=== PATIENT | male | born 1995 | race Caucasian/White ===

== ENCOUNTER 2022-10-01 05:01 | Emergency (ER) | payer MEDICAID, SELFPAY ==
[2022-10-01 05:16] VITALS: BP 140/81; PULSE 95; RESP 18; TEMP 36.8; O2SAT 94; BMI 33.7
[2022-10-01 05:55] VITALS: BP 137/83; PULSE 91; RESP 18; TEMP 37.2; O2SAT 95
[2022-10-01] MEDS: Diphth,Pertus(ACell),Tet Adult 0.5 ML SYRINGE IM (06:04)
[2022-10-01] MEDS: Ketorolac Tromethamine 60 MG/2 ML VIAL IM (06:05)
[2022-10-01] MEDS: Bacitracin Oint 0.9 GM PACKET 10 APPL TOPICAL (06:05)
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
[2022-10-01 06:44] VITALS: RESP 16
[2022-10-01] MEDS: Morphine Sulfate 4 MG/ML CARTRIDGE IM (06:44)
[2022-10-01 07:00] VITALS: BP 127/70; PULSE 85; RESP 16; O2SAT 97
== END 2022-10-01 07:09 | disposition home or self-care (01) ==
PROVIDERS: Emergency Provider Emergency Medicine
DX: T22.211A Burn of second degree of right forearm, initial encounter (principal); X10.2XXA Contact with fats and cooking oils, initial encounter; Y93.G3 Activity, cooking and baking; Y92.019 Unspecified place in single-family (private) house as the place of occurrence of the external cause; Y99.9 Unspecified external cause status
CPT/HCPCS: 16000; 90471; 90715; 96372; 99284; J1885; J2270

== ENCOUNTER 2023-03-02 13:04 | Emergency (ER) | payer MEDICAID, SELFPAY ==
[2023-03-02 14:52] VITALS: BP 133/75; PULSE 68; RESP 16; TEMP 36.7; O2SAT 97; BMI 31.2
--- NOTE | 2023-03-02 14:52 | ED_ITS ---
HPI - Ear Problem General Chief complaint: Ear Problems Stated complaint: ear pain Time Seen by Provider: 03/02/23 14:55 Source: patient Mode of arrival: ambulatory Limitations: no limitations History of Present Illness HPI Narrative: 27 year old male with no significant pmhx here for evaluation of left ear pain x4 days. Reports pain to internal left ear that has been constant for 4 days. Denies pain radiation. Denies draining or bleeding from the ear. Admits to sticking a Qtip in his left ear yesterday to see if anything would come out. Reports taking 800 ibuprofen 3 hours ago for the pain. Denies history of ear infections. Denies recent antibiotic use. Denies fever, chills, ringing in ears, hearing loss, N/V, headache, dizziness. No history of diabetes. Related Data Previous Rx's Medication Instructions Recorded bacitracin 500 unit/gram topical 1 appl topical TID #30 grams 10/01/22 ointment ibuprofen 600 mg tablet 600 mg PO Q6H PRN fever or pain 10/01/22 #20 tabs oxycodone 5 mg tablet 5 mg PO TID PRN pain #7 tabs 10/01/22 amoxicillin 875 mg-potassium 1 tab PO BID 10 days #20 tabs 03/02/23 clavulanate 125 mg tablet Allergies Allergy/AdvReac Type Severity Reaction Status Date / Time seafood Allergy Hives Verified 10/01/22 05:22 Review of Systems Review of Systems: Constitutional: No fever, chills, fatigue, night sweats, weight changes ENT/Mouth: +ear pain, No hearing loss, nasal congestion, sinus pain, rhinorrhea, sore throat Eyes: No eye pain, swelling, redness, vision changes, discharge Cardio: No chest pain, palpitations, PORTER, orthopnea, peripheral edema Pulm: No SOB, cough, sputum, wheezing, dyspnea, hemoptysis GI: No nausea, vomiting, hematemesis, abdominal pain, diarrhea, constipation, hematochezia, melena : No irregular bleeding, dysuria, frequency, urgency, hesitancy, hematuria, flank pain, urinary flow changes, urinary incontinence or retention MSK: No back pain, neck pain, joint pain, myalgias Skin: No lesions, rashes Neuro: No weakness, numbness, paresthesias, LOC, dizziness, headache All other systems reviewed and are negative. PMFSH Social History Social History Alcohol intake: current Alcohol intake frequency: holidays/special occasions only Alcohol type: other Substance Use Type: Marijuana Advance Directives: No Advance Directives Information Provided: Yes Physical Exam Vital Signs: Vital Signs: Last Vital Signs Temp 98.1 F 03/02/23 14:52 Pulse 68 03/02/23 14:52 Resp 16 03/02/23 14:52 BP 133/75 03/02/23 14:52 Pulse Ox 97 03/02/23 14:52 O2 Del Method Room Air 03/02/23 14:52 BMI result Body Mass Index 31.2 Vital signs stable, afebrile Const: General: cooperative, healthy appearing, comfortable, no acute distress, alert and awake Orientation/consciousness: patient oriented x3 Limitations: no limitations HEENT: Other: + No pain on manipulation of the right p juan or tragus. No right mastoid tenderness. Right EAC without erythema or edema. TM intact, no effusion, no bulging. + no pain on manipulation of the left pi nna or tragus. No left mastoid tenderness. Left EAC without erythema or edema. Left TM intact, erythematous, bulging, no perforation. No drainage from the ear. + posterior oropharynx WNL. Controlling secretions, speaking complete sentences. Head: Yes normal to inspection, Yes normocephalic and Yes atraumatic General nose exam: Normal external nose present Face and sinus: Yes normal facial exam and Yes sinuses nontender Mouth: Normal oral and palatal mucosa present Eyes: General: appearance normal, both eyes and all related structures Conjunctivae: conjunctivae normal Sclerae: sclerae normal Pupils: Equal, round and reactive pupils present Neck: Neck: Yes no lymphadenopathy Resp: Effort & Inspection: normal respiratory effort Auscultation: clear to auscultation bilaterally Cardio: Rate: regular rate Rhythm: regular rhythm Skin: General skin exam: no rashes or lesions noted Neuro: General: patient oriented x3 Cranial nerves: Yes Equal, round and reactive pupils present Course Course Course Narrative: Presentation and exam findings are consistant with otitis media of the left ear. There is no concern for mastoiditis. Augmentin has been sent to patient's pharmacy. Discussed treatment plan with patient. Patient has remained stable throughout ED visit today. Discussed worrisome signs and symptoms of when to return to the ED. All questions answered at this time. Patient is agreeable with disposition and stable for discharge. Medical Decision Making Medical Decision Making MDM Narrative: 27 year old male with no significant pmhx here for evaluation of left ear pain x4 days. Vital signs stable, afebrile. Patient is nontoxic appearing and in no acute distress. No pain on manipulation of the right pinna or tragus. No right mastoid tenderness. Right EAC without erythema or edema. TM intact, no effusion, no bulging. No pain on manipulation of the left pinna or tragus. No left mastoid tenderness. Left EAC without erythema or edema. Left TM intact, erythematous, bulging, no perforation. No drainage from the ear. Posterior oropharynx without erythema or edema. Uvula midline. No tonsilar exudates. Lungs CTA bilaterally. Clinical concern for otitis media vs otitis externa. Unlikely mastoiditis, malignant otitis externa, vertigo, TM perforation, ototoxicity. Differential Diagnosis Differential Diagnoses: The differential diagnosis associated with the presentation includes as above. Admission/Observation not included External Record Review External record reviewed: Inpatient record Prescription Management I considered prescription management with: Pain Medication and Antibiotic Discharge Plan Discharge Clinical Impression: Acute otitis media, left Patient Disposition: Home, Self-Care Instructions: Amoxicillin/Clavulanate Potassium (By mouth), Ear Infection (ED) Additional Instructions: You have an infection within your left inner ear called otitis media. Augmentin is an antibiotic that has been sent to your pharmacy. Take this as directed for the next 10 days for inner ear infection. Follow-up with your primary care provider as needed. Do not stick anything in your ears including Q-tips. If symptoms persist or worsen despite treatment, return to the emergency department. In case of an emergency call 911. Prescriptions: New amoxicillin-pot clavulanate 875-125 mg tablet 1 tab PO BID 10 Days Qty: 20 0RF No Action bacitracin 500 unit/gram ointment 1 appl topical TID Qty: 30 1RF oxycodone 5 mg tablet 5 mg PO TID PRN (Reason: pain) Qty: 7 0RF Rx Instructions: Partial Fill upon patient request. ibuprofen 600 mg tablet 600 mg PO Q6H PRN (Reason: fever or pain) Qty: 20 0RF Referrals: Physician,Unknown J [Primary Care Provider] - Interventions: ED Discharge Assessment Last Done: 03/02/23 15:03 Discharge Date/Time: 03/02/23 15:03
== END 2023-03-02 15:03 | disposition home or self-care (01) ==
PROVIDERS: Emergency Provider Emergency Medicine
DX: H66.92 Otitis media, unspecified, left ear (principal); H92.02 Otalgia, left ear
CPT/HCPCS: 99282; 99283